=== PATIENT | female | born 1985 | race American Indian/Alaskan Native ===

== ENCOUNTER 2016-11-25 14:36 | Emergency (ER) | payer MEDICAID, OTHER ==
--- NOTE | 2016-11-25 15:12 | Emergency Department Report ---
Entered by JUDIE SO, acting as scribe for LARRY RUSH NP. Chief Complaint: Nausea/Vomiting/Diarrhea Stated Complaint: 4 WKS /VOMITING/NO ENERGY Time Seen by Provider: 11/25/16 15:04 - HPI History of Present Illness: 31 y/o female presents with suprapubic abd pain that started this morning. Sx include n/v, mild vaginal spotting that started this morning. Pt denies dysuria. Pt notes positive home test one week ago - ROS Review of Systems: - dysuria +n/v +suprapubic abd pain +mild vaginal spotting - Exam Vital Signs: Vital Signs 11/25/16 14:57 Temperature 98.4 F Pulse Rate 63 Respiratory 20 Rate Blood Pressure 108/75 O2 Sat by Pulse 99 Oximetry Physical Exam: abd: soft/nontender, no rebound, no guarding MSE screening note: Focused history and physical exam performed. Due to findings the following was ordered: labs, us ED Disposition for MSE Condition: Stable This documentation as recorded by the scribe,JUDIE SO,accurately reflects the service I personally performed and the decisions made by VICTOR MANUEL coffman TRACY M, NP.
[2016-11-25 15:46] LABS: Basophils % (Auto) 0.2 % (0.0-1.8); Eosinophils % (Auto) 0.1 % (0.0-4.3); Hematocrit 42.4 % (30.3-42.9); Hemoglobin 14.4 gm/dl (10.1-14.3); Mean Corpuscular HGB Conc 34 % (30-34); Mean Corpuscular Hemoglobin 32 pg (28-32); Mean Corpuscular Volume 95 fl (79-97); Platelet Count 278 K/mm3 (140-440); Red Blood Count 4.48 M/mm3 (3.65-5.03); Red Cell Distribution Width 13.9 % (13.2-15.2); White Blood Count 16.6 K/mm3 (4.5-11.0)
[2016-11-25 16:06] LABS: Alanine Aminotransferase 14 units/L (7-56); Albumin 4.7 g/dL (3.9-5); Alkaline Phosphatase 50 units/L (35-129); Anion Gap 20 mmol/L; Blood Urea Nitrogen 12 mg/dL (7-17); Carbon Dioxide 24 mmol/L (22-30); Chloride 94.6 mmol/L (98-107); Glucose 106 mg/dL (65-100); Potassium 3.8 mmol/L (3.6-5.0); Sodium 135 mmol/L (137-145); Total Protein 9.2 g/dL (6.3-8.2)
--- NOTE | 2016-11-25 17:55 | Ultrasound Report ---
FINAL REPORT EXAM: US OB TRANSVAGINAL HISTORY: pain and spotting TECHNIQUE: Endovaginal ultrasound was performed in multiple grayscale sonographic images were obtained of the uterus and adnexa. PRIORS: Transabdominal pelvic ultrasound from 11/25/2016 FINDINGS: There is a gestational sac identified in the uterus. pole measures approximately 5.4 millimeters in length. Yolk sac is identified. heart rate was detected at 120 beats per minute. There is a hypoechoic focus adjacent to the gestational sac that measures approximately 12 x 6 x 15 millimeters. Right and left ovary measure approximately 3.1 x 2.1 x 2.3 centimeters and 4.1 x 2.7 x 2.3 centimeters, respectively. There is 17 millimeter cyst in the left ovary. IMPRESSION: 1. Viable single intrauterine with estimated gestational age 6 weeks 4 days. Estimated due date 07/17/2017. Continued follow-up is recommended. 2. Hypoechoic focus adjacent to the gestational sac is consistent with subchorionic hemorrhage. 3. Please refer to report from transabdominal pelvic ultrasound from 11/25/2016 for additional information.
--- NOTE | 2016-11-25 17:55 | Ultrasound Report ---
FINAL REPORT EXAM: US OB \T\lt; = 14 WEEKS FETUS HISTORY: pain and spotting TECHNIQUE: Transabdominal pelvic ultrasound was performed in multiple grayscale sonographic images were obtained of the uterus and adnexa PRIORS: Endovaginal ultrasound from 11/25/2016 FINDINGS: The uterus measures approximately 9.2 x 5.9 x 6.7 centimeters. There is a gestational sac in the uterus with diameter of 19.5 millimeters. Right ovary was not visualized. Left ovary measures approximately 3.3 x 2.6 x 2.4 centimeters. There are cysts in the left ovary. The larger of these measures 15 millimeters in diameter. IMPRESSION: 1. Gestational sac is identified in the uterus correlating with gestational age of 6 weeks 6 days. Estimated due date 07/15/2017. 2. Please refer to report from endovaginal ultrasound from 11/25/2016 for additional information.
[2016-11-25] MEDS ORDERED: ZOFRAN ONE (23:48)
[2016-11-25] MEDS ORDERED: NACL 0.9% 1000 ML 1,000 ML ONE (23:48)
[2016-11-26] MEDS ORDERED: ZOFRAN IV ONE ×2 (00:32→01:06)
[2016-11-26] MEDS ORDERED: NACL 0.9% 1000 ML 1,000 ML IV ONE (00:33)
--- NOTE | 2016-11-26 00:36 | Emergency Department Report ---
HPI - General Chief Complaint: Nausea/Vomiting/Diarrhea Time Seen by Provider: 11/25/16 15:04 - HPI HPI: Room 25 The patient is a 31-year-old female presenting with a chief complaint of nausea vomiting. The patient states 1 week ago she took a home tests which was positive. Patient states over the past 3-4 days she has developed nausea and vomiting point where she is unable to hold anything down. The patient states she's had similar episodes in the past previous pregnancies. Patient states she developed some lower abdominal pain today as well as some vaginal spotting which has since resolved. Patient denies dysuria, hematuria or fever. Patient was administered Zofran 4 mg IV prior to my evaluation now states she feels "good." Location: [see above] Duration: 3-4 days Quality: Nausea Severity: Moderate Modifying factors: [see above] Context: [see above] Mode of transportation: Unknown ED Past Medical Hx - Past Medical History Previous Medical History?: Yes Additional medical history: Vaginal delivery x 4, Miscarriage x 1 - Surgical History Past Surgical History?: Yes Additional Surgical History: x 1 - Family History Family history: no significant - Social History Smoking Status: Never Smoker Substance Use Type: Marijuana - Medications Home Medications: Home Medications Medication Instructions Recorded Confirmed Last Taken Type Nitrofurantoin [place]/M-Cryst 100 mg PO Q12HR #14 capsule 11/26/16 Unknown Rx [Macrobid CAP] Ondansetron [Zofran ODT TAB] 8 mg PO Q8HR #30 tab.rapdis 11/26/16 Unknown Rx Vit W-Ca,Fe,FA(<1 mg) 1 each PO QDAY #90 tablet 11/26/16 Unknown Rx [ Vitamins] ED Review of Systems ROS: Stated complaint: 4 WKS /VOMITING/NO ENERGY Other details as noted in HPI Comment: All other systems reviewed and negative Constitutional: denies: chills, fever Eyes: denies: eye pain, eye discharge, vision change ENT: denies: ear pain, throat pain Respiratory: denies: cough, shortness of breath, wheezing Cardiovascular: denies: chest pain, palpitations Endocrine: no symptoms reported Gastrointestinal: abdominal pain, nausea, vomiting Genitourinary: abnormal menses Musculoskeletal: denies: back pain, joint swelling, arthralgia Skin: denies: rash, lesions Neurological: denies: headache, weakness, paresthesias Psychiatric: denies: anxiety, depression Hematological/Lymphatic: denies: easy bleeding, easy bruising Physical Exam - Physical Exam Vital Signs: Vital Signs 11/25/16 14:57 Temperature 98.4 F Pulse Rate 63 Respiratory 20 Rate Blood Pressure 108/75 O2 Sat by Pulse 99 Oximetry Physical Exam: GENERAL: The patient is well-developed well-nourished female lying on stretcher not appearing to be in acute distress. [] HEENT: Normocephalic. Atraumatic. Extraocular motions are intact. Patient has moist mucous membranes. NECK: Supple. Trachea midline CHEST/LUNGS: Clear to auscultation. There is no respiratory distress noted. HEART/CARDIOVASCULAR: Regular. There is no tachycardia. There is no gallop rub or murmur. ABDOMEN: Abdomen is soft, nontender. Patient has normal bowel sounds. There is no abdominal distention. SKIN: There is no rash. There is no edema. There is no diaphoresis. NEURO: The patient is awake, alert, and oriented. The patient is cooperative. The patient has normal speech MUSCULOSKELETAL: There is no evidence of acute injury. ED Course Vital Signs 11/25/16 14:57 Temperature 98.4 F Pulse Rate 63 Respiratory 20 Rate Blood Pressure 108/75 O2 Sat by Pulse 99 Oximetry - Reevaluation(s) Reevaluation #1: 11/26/16 01:05 Patient vomited po challenge. We'll administer more Zofran and Reglan 10 mg IV and rechallenge 11/26/16 02:02 Patient tolerating po. Patient denies nausea or vomiting ED Medical Decision Making - Lab Data Result diagrams: 11/25/16 15:26 11/25/16 15:26 Laboratory Tests 11/25/16 11/25/16 11/25/16 15:26 15:26 15:26 WBC 16.6 H RBC 4.48 Hgb 14.4 H Hct 42.4 MCV 95 MCH 32 MCHC 34 RDW 13.9 Plt Count 278 Lymph % (Auto) 10.9 L [place] % (Auto) 4.8 Eos % (Auto) 0.1 Baso % (Auto) 0.2 Lymph # 1.8 [place] # 0.8 Eos # 0.0 Baso # 0.0 Seg Neutrophils % 84.0 H Seg Neutrophils # 14.0 H Sodium 135 L Potassium 3.8 Chloride 94.6 L Carbon Dioxide 24 Anion Gap 20 BUN 12 Creatinine 0.6 L Estimated GFR > 60 BUN/Creatinine Ratio 20.00 Glucose 106 H Calcium 10.0 Total Bilirubin 0.80 AST 15 ALT 14 Alkaline Phosphatase 50 Total Protein 9.2 H Albumin 4.7 Albumin/Globulin Ratio 1.0 HCG, Quant 22584 H Urine Color Urine Turbidity Urine pH Ur Specific [place] Urine Protein Urine Glucose (UA) Urine Ketones Urine Blood Urine Nitrite Urine Bilirubin Urine Urobilinogen Ur Leukocyte Esterase Urine WBC (Auto) Urine RBC (Auto) U Epithel Cells (Auto) Urine Bacteria (Auto) Urine Mucus Blood Type 11/25/16 11/26/16 15:26 00:00 WBC RBC Hgb Hct MCV MCH MCHC RDW Plt Count Lymph % (Auto) [place] % (Auto) Eos % (Auto) Baso % (Auto) Lymph # [place] # Eos # Baso # Seg Neutrophils % Seg Neutrophils # Sodium Potassium Chloride Carbon Dioxide Anion Gap BUN Creatinine Estimated GFR BUN/Creatinine Ratio Glucose Calcium Total Bilirubin AST ALT Alkaline Phosphatase Total Protein Albumin Albumin/Globulin Ratio HCG, Quant Urine Color Yellow Urine Turbidity Clear Urine pH 6.0 Ur Specific [place] 1.033 H Urine Protein 100 mg/dl Urine Glucose (UA) Neg Urine Ketones 80 Urine Blood Neg Urine Nitrite Neg Urine Bilirubin Neg Urine Urobilinogen 2.0 Ur Leukocyte Esterase Sm Urine WBC (Auto) 26.0 H Urine RBC (Auto) 9.0 U Epithel Cells (Auto) 10.0 Urine Bacteria (Auto) 1+ Urine Mucus 3+ Blood Type A POSITIVE - Differential Diagnosis hyperemesis gravidarum, UTI, threatened Critical care attestation.: If time is entered above; I have spent that time in minutes in the direct care of this critically ill patient, excluding procedure time. ED Disposition Clinical Impression: Hyperemesis gravidarum, Subchorionic hemorrhage, Threatened , UTI ( urinary tract infection) Disposition: - TO HOME OR SELFCARE Is pt being admited?: No Does the pt Need Aspirin: No Condition: Stable Instructions: Threatened Miscarriage (ED), Hyperemesis Gravidarum (ED) Additional Instructions: Return to the emergency department immediately should you develop worsening symptoms, fever, inability to tolerate food or liquid or any other concerns. Prescriptions: Nitrofurantoin [place]/M-Cryst [Macrobid CAP] 100 mg PO Q12HR #14 capsule Ondansetron [Zofran ODT TAB] 8 mg PO Q8HR #30 tab.rapdis Vit W-Ca,Fe,FA(<1 mg) [ Vitamins] 1 each PO QDAY #90 tablet Referrals: MARK MILAN MD [Staff Physician] - 3-5 Days (Dr Milan is an [employer]. Please follow up with her to be established as a patient) Time of Disposition: 01:03
[2016-11-26 00:55] LABS: Bacteria,Urine 1+ /HPF (Negative); Bilirubin,Urine NEG (Negative); Blood,Urine NEG (Negative); Ketones,Urine 80 mg/dL (Negative); Leukocyte Esterase,Urine SM (Negative); Mucus,Urine 3+ /HPF; Nitrite,Urine NEG (Negative)
[2016-11-26] MEDS ORDERED: REGLAN ONE (01:05)
[2016-11-26] MEDS ORDERED: REGLAN IV ONE (01:06)
[2016-11-26 02:16] VITALS: BP 113/63
== END 2016-11-26 02:16 | disposition home or self-care (01) ==
LOC: ED 14:36
DX: O20.0 Threatened abortion (principal); O23.41 Unspecified infection of urinary tract in pregnancy, first trimester; O21.0 Mild hyperemesis gravidarum; F12.90 Cannabis use, unspecified, uncomplicated; Z3A.01 Less than 8 weeks gestation of pregnancy
CPT/HCPCS: 36415; 76801; 76817; 80053; 81001; 84702; 85025; 86900; 86901; 96361; 96374; 96375; 96376; 99284; J2405; J2765; J7030

== ENCOUNTER 2017-07-24 09:09 | Emergency (ER) | payer OTHER ==
[2017-07-24 09:56] VITALS: BP 118/72
[2017-07-24 12:28] LABS: HCG Qualitative,Urine Positive (Negative)
[2017-07-24 12:31] LABS: Bilirubin,Urine NEG (Negative); Blood,Urine NEG (Negative); Color,Urine Yellow (Yellow); Protein,Urine <15 mg/dL mg/dL (Negative); Urobilinogen,Urine < 2.0 mg/dL (<2.0)
[2017-07-24] MEDS ORDERED: REGLAN IV ONE (12:48)
[2017-07-24] MEDS ORDERED: NACL 0.9% 1000 ML 1,000 ML IV ONE (12:48)
--- NOTE | 2017-07-24 12:51 | Emergency Department Report ---
ED Abdominal Pain HPI - General Chief Complaint: Abdominal Pain Stated Complaint: C/O SPOTTING&CRAMPS Time Seen by Provider: 07/24/17 12:47 Source: patient Mode of arrival: Ambulatory Limitations: No Limitations - History of Present Illness Initial Comments: Pt reports she is about 7 weeks with LMP mid May. Reports on and off vomiting for a couple weeks, abdominal cramping this week, and spotting noted this AM. Denies vaginal d/c. MD Complaint: abdominal pain -: Gradual, week(s) (1) Location: suprapubic Radiation: none Severity: mild Severity scale (0 -10): 3 Quality: cramping Consistency: constant Improves With: nothing Worsens With: nothing Associated Symptoms: nausea, vomiting. denies: diarrhea, fever, chills, dysuria - Related Data LMP (females 10-50): 2 months Previous Rx's Medication Instructions Recorded Last Taken Type Nitrofurantoin [place]/M-Cryst 100 mg PO Q12HR #14 capsule 11/26/16 Unknown Rx [Macrobid CAP] Ondansetron [Zofran ODT TAB] 8 mg PO Q8HR #30 tab.rapdis 11/26/16 Unknown Rx Vit Calc,Iron,Folic 1 each PO QDAY #90 tablet 11/26/16 Unknown Rx [ Vitamins] Metoclopramide [Reglan] 10 mg PO QID PRN #20 tablet 07/24/17 Unknown Rx Allergies Allergy/AdvReac Type Severity Reaction Status Date / Time No Known Allergies Allergy Verified 11/25/16 23:56 ED Review of Systems ROS: Stated complaint: C/O SPOTTING&CRAMPS Other details as noted in HPI Constitutional: denies: chills, fever Eyes: denies: eye pain, eye discharge, vision change ENT: denies: ear pain, throat pain Respiratory: denies: cough, shortness of breath, wheezing Cardiovascular: denies: chest pain, palpitations Endocrine: no symptoms reported Gastrointestinal: as per HPI, abdominal pain, nausea, vomiting. denies: diarrhea Genitourinary: as per HPI. denies: urgency, dysuria, discharge Musculoskeletal: denies: back pain, joint swelling, arthralgia Skin: denies: rash, lesions Neurological: denies: headache, weakness, paresthesias Psychiatric: denies: anxiety, depression Hematological/Lymphatic: denies: easy bleeding, easy bruising ED Past Medical Hx - Past Medical History Additional medical history: Vaginal delivery x 4, Miscarriage x 1 - Surgical History Additional Surgical History: x 1 - Social History Smoking Status: Never Smoker Substance Use Type: None - Medications Home Medications: Home Medications Medication Instructions Recorded Confirmed Last Taken Type Nitrofurantoin [place]/M-Cryst 100 mg PO Q12HR #14 capsule 11/26/16 Unknown Rx [Macrobid CAP] Ondansetron [Zofran ODT TAB] 8 mg PO Q8HR #30 tab.rapdis 11/26/16 Unknown Rx Vit Calc,Iron,Folic 1 each PO QDAY #90 tablet 11/26/16 Unknown Rx [ Vitamins] Metoclopramide [Reglan] 10 mg PO QID PRN #20 tablet 07/24/17 Unknown Rx ED Physical Exam - General Limitations: No Limitations General appearance: alert, in no apparent distress - Head Head exam: Present: atraumatic, normocephalic - Eye Eye exam: Present: normal appearance - ENT ENT exam: Present: mucous membranes moist - Neck Neck exam: Present: normal inspection - Respiratory Respiratory exam: Present: normal lung sounds bilaterally. Absent: respiratory distress - Cardiovascular Cardiovascular Exam: Present: regular rate, normal rhythm. Absent: systolic murmur, diastolic murmur, rubs, gallop - GI/Abdominal GI/Abdominal exam: Present: soft, tenderness (mild suprapubic), normal bowel sounds. Absent: guarding, rebound - Rectal Rectal exam: Present: deferred - External exam: Present: other (declined) - Extremities Exam Extremities exam: Present: normal inspection - Back Exam Back exam: Present: normal inspection - Neurological Exam Neurological exam: Present: alert, oriented X3 - Psychiatric Psychiatric exam: Present: normal affect, normal mood - Skin Skin exam: Present: warm, dry, intact, normal color. Absent: rash ED Course Vital Signs 07/24/17 09:53 Temperature 98.8 F Pulse Rate 90 Respiratory 18 Rate Blood Pressure 118/72 O2 Sat by Pulse 100 Oximetry - Reevaluation(s) Reevaluation #1: 07/24/17 15:28 resting comfortably, tolerating PO. Stable for d/c. ED Medical Decision Making - Lab Data Result diagrams: 07/24/17 13:08 04/20/18 13:08 Rh+ - Radiology Data Radiology results: report reviewed sviup 12w1d - Medical Decision Making Pt presents with spotting in , labs unremarkable, US shows viable 12w IUP. Pt will follow with OB. Vomiting resolved with Reglan and IVF. - Differential Diagnosis threatened ab, ectopic, hyperemesis Critical care attestation.: If time is entered above; I have spent that time in minutes in the direct care of this critically ill patient, excluding procedure time. ED Disposition Clinical Impression: Threatened miscarriage Disposition: TO HOME OR SELFCARE Is pt being admited?: No Condition: Good Instructions: Abdominal Pain (ED), Threatened Miscarriage (ED) Prescriptions: Metoclopramide [Reglan] 10 mg PO QID PRN #20 tablet PRN Reason: Nausea And Vomiting Referrals: PRIMARY CAREMD [Primary Care Provider] - 3-5 Days ELLIE FRIED MD [Staff Physician] - 3-5 Days Forms: Work/School Release Form(ED) Time of Disposition: 15:27
[2017-07-24 13:22] LABS: Basophils # (Auto) 0.1 K/mm3 (0.0-0.1); Basophils % (Auto) 0.5 % (0.0-1.8); Eosinophils # (Auto) 0.1 K/mm3 (0.0-0.4); Hematocrit 38.7 % (30.3-42.9); Hemoglobin 13.3 gm/dl (10.1-14.3); Lymphocytes # (Auto) 3.4 K/mm3 (1.2-5.4); Lymphocytes % (Auto) 24.8 % (13.4-35.0); Mean Corpuscular HGB Conc 35 % (30-34); Mean Corpuscular Hemoglobin 34 pg (28-32); Mean Corpuscular Volume 97 fl (79-97); Monocytes # (Auto) 0.7 K/mm3 (0.0-0.8); Monocytes % (Auto) 5.3 % (0.0-7.3); Platelet Count 218 K/mm3 (140-440); Red Blood Count 3.98 M/mm3 (3.65-5.03); Red Cell Distribution Width 14.2 % (13.2-15.2)
[2017-07-24 13:40] LABS: Alanine Aminotransferase 47 units/L (7-56); Albumin 3.9 g/dL (3.9-5); BUN/Creatinine Ratio 23; Blood Urea Nitrogen 9 mg/dL (7-17); Calcium 8.8 mg/dL (8.4-10.2); Hemolysis Index 4
--- NOTE | 2017-07-24 15:12 | Ultrasound Report ---
ULTRASOUND OB LESS THAN 14 WEEKS - TRANSABDOMINAL INDICATION: Spotting, . Serum beta-hCG 93,942 units. COMPARISON: None similar during this gestation. FINDINGS: Transabdominal pelvic sonography performed in this patient with LMP of 05/22/2017 and estimated menstrual age of 9 weeks and zero days. It demonstrates an anteverted, gravid uterus estimated at 12.6 x 6.7 x 9 cm with a single, viable intrauterine gestation with heart rate of 167 beats per minute. Approximately 5 mm yolk sac. Mean crown-rump length of 5.24 cm corresponds to 11 weeks and 6 days. Mean biparietal diameter of 1.59 cm corresponds to 12 weeks and 2 days. Femur length 0.67 cm, 12 weeks and one day. Cervix appears closed. Normal imaged maternal urinary bladder. No significant free fluid. Right ovary is 4 x 2.2 x 2.5 cm. A 3.9 x 2.1 x 3.6 on the left ovary demonstrates a 1.5 cm intrinsic follicular cyst and a possible complex/ruptured 1.7 x 1.0 cm cyst/corpus luteum. CONCLUSION: 1. Single, live intrauterine gestation with an ultrasound estimated age of 12 weeks and 1 day and TONO of 02/04/2018. 2. Other findings, as above. Thank you for the opportunity to participate in this patient's care.
== END 2017-07-24 16:03 | disposition home or self-care (01) ==
LOC: ED 09:09
DX: O20.0 Threatened abortion (principal); Z3A.01 Less than 8 weeks gestation of pregnancy
CPT/HCPCS: 36415; 76801; 80053; 81001; 81025; 84702; 85025; 86900; 86901; 96361; 96374; 99284; J2765; J7030

== ENCOUNTER 2017-08-23 09:36 | Emergency (ER) | payer MEDICAID ==
[2017-08-23 09:44] VITALS: BP 111/64
[2017-08-23] MEDS ORDERED: TYLENOL PO ONE (10:05)
--- NOTE | 2017-08-23 10:07 | Emergency Department Report ---
ED Female HPI - General Chief complaint: Abdominal Pain Stated complaint: ABDOMINAL PAIN/16 WEEKS Time Seen by Provider: 08/23/17 09:51 Source: patient, old records reviewed Mode of arrival: Ambulatory Limitations: No Limitations - History of Present Illness Initial comments: 32-year-old female presents to the hospital currently approximately 16 weeks complaining of suprapubic cramping since 3 AM. Pain is sharp, cramping , intermittent, rated 8/10 in intensity. With palpation. No remitting factors. Patient denies associated symptoms including vomiting, dysuria, vaginal bleeding, or fever. Patient had a ultrasound in the ED here on July 24 showing a 12 week 1 day IUP with heart beat and a corpus luteum cyst. [employer] affiliated with [place] - Related Data Previous Rx's Medication Instructions Recorded Last Taken Type Ondansetron [Zofran ODT TAB] 8 mg PO Q8HR #30 tab.rapdis 11/26/16 Unknown Rx Vit Calc,Iron,Folic 1 each PO QDAY #90 tablet 11/26/16 Unknown Rx [ Vitamins] Metoclopramide [Reglan] 10 mg PO QID PRN #20 tablet 07/24/17 Unknown Rx Nitrofurantoin [place]/M-Cryst 100 mg PO Q12HR #14 capsule 08/23/17 Unknown Rx [Macrobid CAP] Allergies Allergy/AdvReac Type Severity Reaction Status Date / Time No Known Allergies Allergy Verified 11/25/16 23:56 ED Review of Systems ROS: Stated complaint: ABDOMINAL PAIN/16 WEEKS Other details as noted in HPI Comment: All other systems reviewed and negative ED Past Medical Hx - Past Medical History Previous Medical History?: No Additional medical history: Vaginal delivery x 4, Miscarriage x 1 - Surgical History Past Surgical History?: Yes Additional Surgical History: x 1 - Social History Smoking Status: Never Smoker Substance Use Type: None - Medications Home Medications: Home Medications Medication Instructions Recorded Confirmed Last Taken Type Ondansetron [Zofran ODT TAB] 8 mg PO Q8HR #30 tab.rapdis 11/26/16 Unknown Rx Vit Calc,Iron,Folic 1 each PO QDAY #90 tablet 11/26/16 Unknown Rx [ Vitamins] Metoclopramide [Reglan] 10 mg PO QID PRN #20 tablet 07/24/17 Unknown Rx Nitrofurantoin [place]/M-Cryst 100 mg PO Q12HR #14 capsule 08/23/17 Unknown Rx [Macrobid CAP] ED Physical Exam - General Limitations: No Limitations - Other Other exam information: General: No limitations, patient is alert in no acute distress Head exam: Atraumatic, normocephalic Eyes exam: Normal appearance, pupils equal reactive to light, extraocular movements intact ENT: Moist mucous membrane, normal oropharynx Neck exam: Normal inspection, full range of motion, no meningismus nontender Respiratory exam: Clear to auscultation bilateral, no wheezes, rales, crackles Cardiovascular: Normal rate and rhythm, normal heart sounds Abdomen: Soft, nondistended, mild suprapubic tenderness, increased bowel sounds. No rebound or guarding Extremity: Full range of motion normal inspection no deformity Back: Normal Inspection, full range of motion, no tenderness Neurologic: Alert, oriented x3, cranial nerves intact, no motor or sensory deficit Psychiatric: normal affect, normal mood Skin: Warm, dry, intact ED Course Vital Signs 08/23/17 08/23/17 08/23/17 09:41 10:11 10:35 Temperature 98.3 F Pulse Rate 87 Respiratory 16 16 16 Rate Blood Pressure 111/64 O2 Sat by Pulse 98 Oximetry - Reevaluation(s) Reevaluation #1: 08/23/17 10:07 Tylenol for pain ED Medical Decision Making - Medical Decision Making UA suggestive of possible UTI. Provided Tylenol and Macrobid in the ED. Treatment will be prescribed and outpatient follow-up will be advised. Positive heart tones auscultated in the ED and patient denies vaginal bleeding. Patient has a 1 record 1 month ago showing IUP therefore ultrasound was obtained in the ED - Differential Diagnosis UTI, intestinal cramps, miscarriage, infection Critical Care Time: No Critical care attestation.: If time is entered above; I have spent that time in minutes in the direct care of this critically ill patient, excluding procedure time. ED Disposition Clinical Impression: , UTI (urinary tract infection) Disposition: TO HOME OR SELFCARE Is pt being admited?: No Does the pt Need Aspirin: No Condition: Stable Instructions: (ED), Urinary Tract Infection in Women (ED) Additional Instructions: Take Tylenol as needed for pain. Take the medications as prescribed. Follow- up with your cancer center director doctor for further evaluation Prescriptions: Nitrofurantoin [place]/M-Cryst [Macrobid CAP] 100 mg PO Q12HR #14 capsule Referrals: your, cancer center director [Other] - 3-5 Days Time of Disposition: 11:57
[2017-08-23 11:21] LABS: Bilirubin,Urine NEG (Negative); Blood,Urine NEG (Negative); Color,Urine Yellow (Yellow); Mucus,Urine 2+ /HPF; Protein,Urine <15 mg/dL mg/dL (Negative); Urobilinogen,Urine < 2.0 mg/dL (<2.0)
[2017-08-23] MEDS ORDERED: MACROBID PO ONE (11:38)
== END 2017-08-23 12:15 | disposition home or self-care (01) ==
LOC: ED 09:36
DX: O23.42 Unspecified infection of urinary tract in pregnancy, second trimester (principal); Z3A.16 16 weeks gestation of pregnancy
CPT/HCPCS: 81001; 99283

== ENCOUNTER 2017-12-28 11:09 | Outpatient (CLI) | payer OTHER ==
[2017-12-28 12:07] VITALS: BP 114/67
== END 2017-12-28 13:00 | disposition home or self-care (01) ==
LOC: TRG 11:09
PROVIDERS: ATTEND Obstetrics & Gynecology
DX: O47.03 False labor before 37 completed weeks of gestation, third trimester (principal); Z3A.34 34 weeks gestation of pregnancy
CPT/HCPCS: 59025